=== PATIENT | male | born 2000 | race Two or more races ===

== ENCOUNTER 2021-10-16 19:52 | Emergency (ER) | payer MEDICAID ==
[~2021-10-16] VITALS: Ht 170.2 cm; Wt 81.6 kg
[2021-10-16 20:00] VITALS: BP 137/92
[2021-10-16] MEDS ORDERED: KETOROLAC TROMETH 60MG/2ML VIAL IM ONE (22:30)
[2021-10-16] MEDS ORDERED: CEPH-509 PO ×2 (23:04→23:09)
[2021-10-16] MEDS ORDERED: IBUP100S11 PO ×3 (23:04→23:09)
== END 2021-10-16 23:15 | disposition home or self-care (01) ==
LOC: ER 19:57
DX: S80.851A Superficial foreign body, right lower leg, initial encounter (principal); W22.8XXA Striking against or struck by other objects, initial encounter; Y93.89 Activity, other specified; Y92.89 Other specified places as the place of occurrence of the external cause; Y99.8 Other external cause status
CPT/HCPCS: 10120; 73590; 96372; 99285; J1885